=== PATIENT | female | born 1950 | race Two or more races ===

== ENCOUNTER 2024-07-24 15:49 | Inpatient (IN) | payer OTHER ==
[~2024-07-24] VITALS: Ht 152.4 cm; Wt 77.5 kg
[2024-07-24 16:20] VITALS: PULSE 92; RESP 16; O2SAT 90
--- NOTE | 2024-07-24 16:29 | ED.PDOC ---
Musculoskeletal HPI Comments 74 year old female presents to the ED with chief complaint of bilateral lower extremities. Patient reports that she has been experiencing bilateral leg swelling for the past 3-4 months with associated painful right lower extremity wounds that have been present for a month. Patient relays that she also has been having SOB, however, she is currently on 2L of O2 via NC at home. Patient denies any chest pain, cough, numbness, weakness, fever, or chills. Chief Complaint: Lower Extremity Time Seen by MD: 16:26 Reviewed Notes: Nurses Notes, Medications, Allergies Allergies: Coded Allergies: Iodine (Verified Allergy, Unknown, 07/24/24) Uncoded Allergies: PENICILLIN (Allergy, Unknown, 07/24/24) Information Source: Patient Mode of Arrival: Wheelchair Location: Bilateral Extremity Location: Leg Timing: Months Prehospital treatment: None Severity: Moderate Able to Move Extremity: No Bear Weight: Limited Pain: Moderate Mechanism: Spontaneous Circumstances: Spontaneous, Preceding Wound Onset of Symptoms: Spontaneous Symptoms: Swelling, Pain Past Medical History PAST MEDICAL HISTORY: CHF, HTN Surgical History: Unknown 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 Hx Family History Family History: Reviewed,noncontributory to illness Social History Smoker: Non-Smoker Alcohol: Denies ETOH Use Drugs: Denies Drug Use Lives In: Home Constitutional: denies: chills, diaphoresis, fatigue, fever, malaise, sweats, weakness, others EENTM: denies: blurred vision, double vision, ear bleeding, ear discharge, ear drainage, ear pain, ear ringing, eye pain, eye redness, hearing loss, mouth pain, mouth swelling, nasal discharge, nose bleeding, nose congestion, nose pain, photophobia, tearing, throat pain, throat swelling, voice changes, others Respiratory: reports: shortness of breath; denies: cough, hemoptysis, orthopnea, SOB at rest, SOB with excertion, stridor, wheezing, others Cardiovascular: reports: edema; denies: chest pain, dizzy spells, diaphoresis, Dyspnea on exertion, irregular heart beat, left arm pain, lightheadedness, palpitations, PND, syncope, others Gastrointestinal: denies: abdomen distended, abdominal pain, blood streaked bowels, constipated, diarrhea, dysphagia, difficulty swallowing, hematemesis, melena, nausea, poor appetite, poor fluid intake, rectal bleeding, rectal pain, vomiting, others Genitourinary: denies: abnormal vagina bleeding, burning, dyspareunia, dysuria, flank pain, frequency, hematuria, incontinence, pain, , vagina discharge, urgency, others Neurological: denies: dizziness, fainting, headache, left sided numbness, left sided weakness, numbness, paresthesia, pre-existing deficit, right sided numbness, right sided weakness, seizure, speech problems, tingling, tremors, weakness, others Musculoskeletal: denies: back pain, gout, joint pain, joint swelling, muscle pain, muscle stiffness, neck pain, others Integumetry: reports: wounds; denies: bruises, change in color, change in hair/nails, dryness, laceration, lesions, lumps, rash, others Allergic/Immunocompromised: denies: Difficulty Healing, Frequent Infections, Hives, Itching, others Hematologic/Lymphatic: denies: anemia, blood clots, easy bleeding, easy bruising, swollen glands, others Endocrine: denies: excessive hunger, excessive sweating, excessive thirst, excessive urination, flushing, intolerance to cold, intolerance to heat, unex plained weight gain, unexplained weight loss, others Psychiatric: denies: anxiety, bipolar disorder, depression, hopeless, panic disorder, schizophrenia, sleepless, suicidal, others All Other Systems: Reviewed and Negative Physical Exam General Appearance: No Apparent Distress, Normal HEENT: Normal ENT Inspection, PERRL/EOMI Neck: Full Range of Motion, Non-Tender, Normal, Normal Inspection Respiratory: Chest Non-Tender, Lungs Clear, No Accessory Muscle Use, No Respiratory Distress, Normal Breath Sounds Cardiovascular: No Edema, No JVD, No Murmur, No Gallop, Normal Peripheral Pulses, Regular Rate/Rhythm Breast Exam: Deferred Gastrointestinal: No Organomegaly, Non Tender, No Pulsatile Mass, Normal Bowel Sounds, Soft Genitalia: Deferred Pelvic: Deferred Rectal: Deferred Extremities: Leg edema (Bilateral lower extremity pitting edema), No calf te nderness, Normal capillary refill, Normal inspection, Non-tender Musculoskeletal : Apperance: Normal Neurologic: Alert, snack stewardess II-XII nml as Tested, No Motor Deficits, Normal Affect, Normal Mood, No Sensory Deficits Cerebellar Function: Normal Reflexes: Normal Skin: Dry, Normal Color, Warm, Wounds (2 small, 5mm round wounds with no discharge to the anterior right lower leg) Lymphatic: No Adenopathy Was a procedure done? Was a procedure done?: No Differential Diagnosis EXT Differential Diagnosis: Cellulitis, CHF, Deep Vein Thrombosis, Compartment Syndrome, Neurovascular injury X-Ray, Labs, Meds, VS Vital Signs Date Time Temp Pulse Resp B/P (MAP) Pulse Ox O2 Delivery O2 Flow Rate FiO2 07/24/24 16:20 98.3 92 16 163/97 (119) 90 98.3 07/24/24 16:20 92 16 90 Nasal Cannula* 2 28 07/24/24 16:20 98.3 92 16 163/97 (119) 96 07/24/24 16:18 89 07/24/24 15:57 92 Lab Test 07/24/24 19:16 07/24/24 16:25 Range/Units Urine Color Pending Urine Clarity Pending Urine pH Pending Urine Specific [place] Pending Urine Protein Pending Urine Ketones Pending Urine Blood Pending Urine Nitrite Pending Urine Bilirubin Pending Urine Urobilinogen Pending Urine Leukocyte Esterase Pending Urine RBC Pending Urine Microscopic WBC Pending Urine Squamous Epithelial Cells Pending Urine Bacteria Pending Urine Glucose Pending White Blood Count 7.9 4.4-10.8 10^3/uL Red Blood Count 5.44 H 4.0-5.20 10^6/uL Hemoglobin 15.0 12.2-16.2 g/dL Hematocrit 48.1 H 36.0-46.0 % Mean Corpuscular Volume 88.4 80.0-100.0 fL Mean Corpuscular Hemoglobin 27.5 L 28.0-32.0 pg Mean Corpuscular Hemoglobin Concent 31.1 L 32.0-36.0 g/dL Red Cell Distribution Width 16.3 H 11.8-14.3 % Platelet Count 288 140-450 10^3/uL Mean Platelet Volume 8.5 6.9-10.8 fL Neutrophils (%) (Auto) 71.5 37.0-80.0 % Lymphocytes (%) (Auto) 10.0 10.0-50.0 % Monocytes (%) (Auto) 11.7 0.0-12.0 % Eosinophils (%) (Auto) 5.8 0.0-7.0 % Basophils (%) (Auto) 1.0 0.0-2.0 % Neutrophils # (Auto) 5.6 1.6-8.6 10 ^3/uL Lymphocytes # (Auto) 0.8 0.4-5.4 10 ^3/uL Monocytes # (Auto) 0.9 0-1.3 10 ^3/uL Eosinophils # (Auto) 0.5 0-0.8 10 ^3/uL Basophils # (Auto) 0.1 0-0.2 10 ^3/uL Nucleated Red Blood Cells 0.1 % Sodium Level 143 136-145 mmol/L Potassium Level 3.7 3.5-5.1 mmol/L Chloride Level 105 98-107 mmol/L Carbon Dioxide Level 32 H 20-31 mmol/L Anion Gap 6 5-15 Blood Urea Nitrogen 17 9-23 mg/dL Creatinine 1.38 H 0.550-1.02 mg/dL Glomerular Filtration Rate Calc 41 >90 mL/min BUN/Creatinine Ratio 12.3 10.0-20.0 Serum Glucose 97 74-106 mg/dL Calcium Level 9.6 8.7-10.4 mg/dL Total Bilirubin 0.5 0.2-1.0 mg/dL Aspartate Amino Transferase (AST) 21 13-40 U/L Alanine Aminotransferase (ALT) 13 7-40 U/L Alkaline Phosphatase 152 H 46-116 U/L B-Type Natriuretic Peptide 1167.82 0-100 pg/mL Total Protein 6.4 5.7-8.2 g/dL Albumin 4.1 3.2-4.8 g/dL X-Ray, Labs, Meds, VS Comment Elevated BNP 1167 Patient will be admitted for CHF exacerbation and cellulitis Time of 1ST Reevaluation: 17:26 Reevaluation 1ST: Unchanged Patient Education/Counseling: Diagnosis, Treatment Family Education/Counseling: No Family Present Departure 1 Departure Time of Disposition: 19:43 Impression: Primary Impression: CHF exacerbation Qualified Codes: I50.23 - Acute on chronic systolic (congestive) heart failure Additional Impressions: Peripheral edema Pulmonary congestion Cellulitis and abscess of leg Disposition: ADMITTED INPATIENT Condition: Fair Discharged With: Self Critical Care Note Critical Care Time?: No Stability Stability form required: No Heart Score Heart Score: Heart Score Response (Comments) Value History N/A 0 EKG N/A 0 Age N/A 0 Risk Factors N/A 0 Troponin N/A 0 Total 0 I personally scribed for LUDWIG CASTILLO ([email or web address]) on 07/24/24 at 16:29. Electronically submitted by Kelvin Rowe ([email or web address]). LUDWIG CASTILLO Jul 24, 2024 16:29
[2024-07-24 16:38] LABS: Basophils # (auto) 0.1 10 ^3/uL (0-0.2); Eosinophils # (auto) 0.5 10 ^3/uL (0-0.8); Eosinophils % (auto) 5.8 % (0.0-7.0); Hematocrit 48.1 % (36.0-46.0); Lymphocytes # (auto) 0.8 10 ^3/uL (0.4-5.4); Mean Corpuscular Hemoglobin 27.5 pg (28.0-32.0); Mean Corpuscular Hgb Conc. 31.1 g/dL (32.0-36.0); Mean Corpuscular Volume 88.4 fL (80.0-100.0); Monocytes # (auto) 0.9 10 ^3/uL (0-1.3); Monocytes % (auto) 11.7 % (0.0-12.0); Neutrophils # (auto) 5.6 10 ^3/uL (1.6-8.6); Neutrophils % (auto) 71.5 % (37.0-80.0); Nucleated Red Blood Cells % 0.1 %; Platelet Count (auto) 288 10^3/uL (140-450); Red Blood Cells 5.44 10^6/uL (4.0-5.20); Red Cell Distribution Width 16.3 % (11.8-14.3); White Blood Cell 7.9 10^3/uL (4.4-10.8)
[2024-07-24 16:58] LABS: Alanine Aminotransferase 13 U/L (7-40); Albumin 4.1 g/dL (3.2-4.8); Anion Gap 6 (5-15); Aspartate Aminotransferase 21 U/L (13-40); BUN/Creatinine Ratio 12.3 (10.0-20.0); Bilirubin, Total 0.5 mg/dL (0.2-1.0); Blood Urea Nitrogen 17 mg/dL (9-23); Calcium 9.6 mg/dL (8.7-10.4); Chloride 105 mmol/L (98-107); Glucose 97 mg/dL (74-106); Potassium 3.7 mmol/L (3.5-5.1); Sodium 143 mmol/L (136-145); Total Protein 6.4 g/dL (5.7-8.2)
[2024-07-24 16:59] LABS: Alkaline Phosphatase 152 U/L (46-116); Carbon Dioxide 32 mmol/L (20-31)
--- NOTE | 2024-07-24 17:08 | DVH ---
CHEST RADIOGRAPH Indication: sob Technique: Single frontal view of the chest was obtained COMPARISON: None FINDINGS: Lines and Tubes: None Lungs: Mild congestion Pleura: No effusion. No pneumothorax. Cardiomediastinal contours: Large hiatal hernia Bones: Unremarkable IMPRESSION: Mild congestion Large hiatal hernia
[2024-07-24 19:42] LABS: Urine Bacteria None Seen /hpf (None Seen)
[2024-07-24 19:49] LABS: Urine Blood Negative /uL (Negative); Urine Clarity Clear (Clear); Urine Color Light-Yellow (Yellow); Urine Protein, UAD Negative (Negative); Urine Specific Gravity 1.011 (1.001-1.035); Urine Squamous Epithelial Cell FEW /hpf (<5); Urine Urobilinogen Normal (Negative); Urine WBC 6 /HPF (0-5); Urine pH 5.5 (5.0-9.0)
[2024-07-24] MEDS: SODIUM CHLOR 0.9% PF (SALINE LOCK) 10ML VIAL/SYR IV SCH (22:00)
[2024-07-24] MEDS ORDERED: NITROGLYCERIN 0.4 MG SL TAB SL PRN (22:00)
[2024-07-24] MEDS ORDERED: ACETAMINOPHEN 325 MG TAB PO PRN (22:00)
[2024-07-24] MEDS ORDERED: MORPHINE SULFATE INJ 2 MG/ml SYRG IV PRN (22:00)
[2024-07-24 23:27] LABS: Magnesium 1.9 mg/dL (1.6-2.6)
--- NOTE | 2024-07-24 23:39 | DVHHPRES ---
History of Present Illness Resident Creating Document: ALYSE NEWMAN RESIDENT History of Present Illness REJI PRICE is a 74-year-old female with a PMH of CHF, HTN presented to the ED with the chief complaints of worsening of bilateral lower extremity swelling and shortness of breaths. Patient reported she has been having shortness of breath all the time and she is on 2 L NC home oxygen. Patient reported for past 1 month since started having more swelling in the both legs associated with itchiness, redness and wounds on right extremity, she exactly did not remember the trigger for wounds, initially oozing but not anymore. Patient reported no signs of infection like fever. On my assessment patient denies fever, nausea, vomiting, diarrhea, diaphoresis, chest pain and other acute associated symptoms. PMH: CHF for 1 year, HTN for 20 years (clonidine and metoprolol) PSH: Not significant Family Hx: CABG in mother Social Hx: Lives with son. Former smoker 20 years ago <1 pack/day 10 years, denies alcohol and other drug abuse. Alergies: Iodine, penicillins (hives) Home medications: Review of Systems Review of Systems Patient seen and examined at the bedside. Reported shortness of breath and pain in the right lower extremity, ordered venous scan, pending. ordered echocardiogram, pending. Currently receiving Lasix 40, Coreg, clindamycin. Constitutional: No: Fever, Chills, Sweats, Weakness, Malaise, Other Eyes: No: Pain, Vision change, Conjunctivae inflammation, Eyelid inflammation, Other, Redness ENT: No: Ear pain, Ear discharge, Nose pain, Nose discharge, Nose congestion, Mouth pain, Mouth swelling, Throat pain, Throat swelling, Other Respiratory: Shortness of breath, SOB with excertion Cardiovascular: Edema Skin: Other (Rash, wounds on right lower extremity) Neurological: No: Weakness, Numbness, Incoordination, Change in speech, Confusion, Seizures, Other Allergies: Coded Allergies: Iodine (Verified Allergy, Unknown, 07/24/24) Uncoded Allergies: PENICILLIN (Allergy, Unknown, 07/24/24) Medications Current Medications Medications Dose Ordered Sig/Ewa Route Start Time Stop Time Status Last Admin Dose Admin Sodium Chloride 10 ml Q8HR IV 07/24/24 22:00 Enoxaparin Sodium 40 mg DAILY SC 07/25/24 10:00 Acetaminophen 650 mg Q6HP PRN PO 07/24/24 22:00 Nitroglycerin 0.4 mg Q5MINP PRN SL 07/24/24 22:00 Morphine Sulfate 2 mg Q30M PRN IV 07/24/24 22:00 Furosemide 40 mg BIDD IV 07/25/24 06:00 Carvedilol 6.25 mg Q12HR PO 07/25/24 10:00 Clindamycin Phosphate 50 ml @ 50 mls/hr Q8HR IV 07/25/24 06:00 Pantoprazole Sodium 40 mg DAILY IV 07/25/24 10:00 Exam Vital Signs Vital Signs Date Time Temp Pulse Resp B/P (MAP) Pulse Ox O2 Delivery O2 Flow Rate FiO2 07/24/24 16:20 98.3 92 16 163/97 (119) 90 98.3 07/24/24 16:20 Nasal Cannula* 2 28 Exam Pt is lying on bed General Appearance: Alert, Oriented X3, Cooperative, mild distress HEENT: Atraumatic, Mucous membranes moist/pink Respiratory: Clear to auscultation, Normal air movement, Cardiovascular: Regular rate, Normal S1, Normal S2, Abdominal: Active bowel sounds, Soft, no distention, no tenderness Extremities: 2+ BLE edema with redness, warmth, wounds on right leg Neuro: Normal speech, sensorimotor deficits none Psych/Mental Status: Mental status NL, Mood NL Nurse was there as sharperone during examination Labs/Xrays Labs Test 07/24/24 22:42 07/24/24 19:16 07/24/24 16:25 Range/Units Urine Color Light-yellow Yellow Urine Clarity Clear Clear Urine pH 5.5 5.0-9.0 Urine Specific [place] 1.011 1.001-1.035 Urine Protein Negative Negative Urine Ketones Negative Negative Urine Blood Negative Negative /uL Urine Nitrite Negative Negative Urine Bilirubin Negative Negative Urine Urobilinogen Normal Negative mg/dL Urine Leukocyte Esterase Trace Negative /uL Urine RBC <1 0 - 4 /hpf Urine Microscopic WBC 6 H 0-5 /HPF Urine Squamous Epithelial Cells Few <5 /hpf Urine Bacteria None seen None Seen /hpf Urine Glucose Normal Normal mg/dL White Blood Count 7.9 4.4-10.8 10^3/uL Red Blood Count 5.44 H 4.0-5.20 10^6/uL Hemoglobin 15.0 12.2-16.2 g/dL Hematocrit 48.1 H 36.0-46.0 % Mean Corpuscular Volume 88.4 80.0-100.0 fL Mean Corpuscular Hemoglobin 27.5 L 28.0-32.0 pg Mean Corpuscular Hemoglobin Concent 31.1 L 32.0-36.0 g/dL Red Cell Distribution Width 16.3 H 11.8-14.3 % Platelet Count 288 140-450 10^3/uL Mean Platelet Volume 8.5 6.9-10.8 fL Neutrophils (%) (Auto) 71.5 37.0-80.0 % Lymphocytes (%) (Auto) 10.0 10.0-50.0 % Monocytes (%) (Auto) 11.7 0.0-12.0 % Eosinophils (%) (Auto) 5.8 0.0-7.0 % Basophils (%) (Auto) 1.0 0.0-2.0 % Neutrophils # (Auto) 5.6 1.6-8.6 10 ^3/uL Lymphocytes # (Auto) 0.8 0.4-5.4 10 ^3/uL Monocytes # (Auto) 0.9 0-1.3 10 ^3/uL Eosinophils # (Auto) 0.5 0-0.8 10 ^3/uL Basophils # (Auto) 0.1 0-0.2 10 ^3/uL Nucleated Red Blood Cells 0.1 % Sodium Level 143 136-145 mmol/L Potassium Level 3.7 3.5-5.1 mmol/L Chloride Level 105 98-107 mmol/L Carbon Dioxide Level 32 H 20-31 mmol/L Anion Gap 6 5-15 Blood Urea Nitrogen 17 9-23 mg/dL Creatinine 1.38 H 0.550-1.02 mg/dL Glomerular Filtration Rate Calc 41 >90 mL/min BUN/Creatinine Ratio 12.3 10.0-20.0 Serum Glucose 97 74-106 mg/dL Hemoglobin A1c 5.9 H <5.7 % A1C Calcium Level 9.6 8.7-10.4 mg/dL Magnesium Level 1.9 1.6-2.6 mg/dL Total Bilirubin 0.5 0.2-1.0 mg/dL Aspartate Amino Transferase (AST) 21 13-40 U/L Alanine Aminotransferase (ALT) 13 7-40 U/L Alkaline Phosphatase 152 H 46-116 U/L B-Type Natriuretic Peptide 1167.82 0-100 pg/mL Total Protein 6.4 5.7-8.2 g/dL Albumin 4.1 3.2-4.8 g/dL Thyroid Stimulating Hormone (TSH) 2.95 0.55-4.78 uIU/mL Assessment/Plan Assessment/Plan # Acute on chronic systolic VS diastolic CHF -admitted to telemetry -BNP elevated -currently giving Lasix 40 mg, Coreg 6.12 -CXR showed congestion -Ordered echocardiogram, TSH, lipid panel # Uncontrolled HTN -monitor blood pressure -currently on losartan # DOUG likely VMN unknown baseline -monitor for now # Right lower extremity cellulitis vs abscess -currently on clindamycin and doxy -ordered wound consult and cultures -ordered CAT scan WO contrast # Chronic Large hiatal hernia -evident on CXR -currently on Protonix PUD PPX: Protonix VTE PPX: Lovenox Diet: Cardiac diet Goals of care discussed with the patient and daughter for more than 27 minutes: Full code status Case discussed with Dr. Chavira, patient and nurse Plan discussed with: Patient, Daughter, Son, Other (RN) My Orders Orders - ALYSE NEWMAN RESIDENT Procedure Category Date Status Time Admit ADMIT 07/24/24 Transmitted 21:48 Allergies SABI 07/24/24 In Process 21:48 Code Status CODE 07/24/24 Transmitted 21:48 Sodium Chloride Lock PHA 07/24/24 In Process (Saline Lock Ns) 22:00 Oxygen Per Hour RT 07/24/24 Transmitted 21:48 Enoxaparin Sodium PHA 07/25/24 In Process (Lovenox) 10:00 Complete Blood Count LAB 07/25/24 Verified 04:00 Comprehensive LAB 07/25/24 Verified Metabolic Panel 04:00 Cardiac DIET 07/25/24 Transmitted Diet-2gna,Lofat,Lochol Breakfast Echo 2d Mode Cardiac US 07/24/24 Logged DOP 21:48 Condition: Stable SABI 07/24/24 In Process 21:48 Acetaminophen Tablet PHA 07/24/24 In Process (Tylenol Tablet) 22:00 Sequential SABI 07/24/24 In Process Compression Device Nitroglycerin PHA 07/24/24 In Process Sublingual (Ntrostat 22:00 Morphine Sulfate PHA 07/24/24 In Process Injection 22:00 Oxygen By Nasal RT 07/24/24 Transmitted Cannula 21:48 Stat Ekg For Chest [facility] 07/24/24 In Process Pain 21:48 Notify Md Of Changes [facility] 07/24/24 In Process From Base 21:48 Performance Improvement Specialist For [facility] 07/24/24 In Process 24 Hours 21:48 Emergency Dysrhythmia [facility] 07/24/24 In Process Protocol 21:48 Rhythm Strips Once [facility] 07/24/24 In Process Every Shift 21:48 Rapid Influenza A&B LAB 07/24/24 Logged 22:25 Covid19 Antigen [facility] LAB 07/24/24 Logged PTPTT LAB 07/25/24 Verified 04:00 Magnesium LAB 07/24/24 In Process 22:25 Lipid Panel LAB 07/24/24 In Process 22:25 Drug Screen LAB 07/24/24 Logged 22:25 Blood Alcohol LAB 07/24/24 In Process 22:25 Furosemide Injection PHA 07/25/24 In Process (Lasix Injection) 06:00 Carvedilol Tablet PHA 07/25/24 In Process (Coreg Tablet) 10:00 Clindamycin 600mg Iv PHA 07/25/24 Logged (Cleocin Iv) 06:00 Pantoprazole PHA 07/25/24 In Process (Protonix) 10:00 * Wound Consult CONS 07/24/24 Transmitted Wound Culture W/ Gs JOSE 07/24/24 Uncollected 23:26 Bilat Lower Dvt US 07/24/24 Logged 23:29 Date of Service: Jul 24, 2024 Billing Provider: APOORVA CHAVIRA MD Common Visit Codes: 11734-RJMRLAG INP/OBS CARE (HIGH) ALYSE NEWMAN RESIDENT Jul 24, 2024 23:39 APOORVA CHAVIRA MD Jul 25, 2024 23:51
[2024-07-25] MEDS: FUROSEMIDE 40 MG/4 ML VIAL IV ONE (00:16)
--- NOTE | 2024-07-25 00:16 | DVH ---
Bilateral lower extremity venous duplex Clinical History: pain amnd swelling Comparison: None Technique: Duplex Doppler evaluation of the deep venous systems of both lower extremities from the common femora l veins to the popliteal veins including color Doppler and spectral/pulsed waveform analysis was perf ormed. Findings: RIGHT SIDE: The common femoral vein demonstrates appropriate compressibility and waveform variability . There is compressibility/patency of the great saphenous vein at the proximal thigh . The femoral vein demonstrates appropriate compressibility and waveform variability . The deep femoral vein demonstrates appropriate compressibility and waveform variability . The popliteal vein demonstrates appropriate compressibility and waveform variability . LEFT SIDE: The common femoral vein demonstrates appropriate compressibility and waveform variability . There is compressibility/patency of the great saphenous vein at the proximal thigh . The femoral vein demonstrates appropriate compressibility and waveform variability . The deep femoral vein demonstrates appropriate compressibility and waveform variability . The popliteal vein demonstrates appropriate compressibility and waveform variability . Impression: No evidence of right or left femoropopliteal venous thrombosis.
[2024-07-25] MEDS: CARVEDILOL 3.125 MG TAB PO ONE (00:20)
[2024-07-25] MEDS: FUROSEMIDE 20 MG/2 ML VIAL IV ONE (00:21)
[2024-07-25] MEDS: cefTRIAXone 1GM/50ML D5W 50 ML IV ONE (00:22)
[2024-07-25 01:48] LABS: COVID19 ANTIGEN SOFIA FIA NEGATIVE (NEGATIVE); Rapid Influenza A Negative (Negative); Rapid Influenza B Negative (Negative)
--- NOTE | 2024-07-25 03:21 | DVH ---
INDICATION: abscess COMPARISON: None TECHNIQUE: CT of the right tibia and fibula was performed without contrast. Volume transverse images were obtained and reconstructed in multiple planes using bone and soft tissue algorithms. CONTRAST: None. Radiation Dose: DLP 421.12 mGy.cm; CTDI 7.75 mGy. FINDINGS: There is no evidence for acute fracture or dislocation. The bones are somewhat osteopenic. Degenerat susana changes noted about the knee and ankle with joint space narrowing and osteophytosis. There is dif fuse subcutaneous edema noted about the foreleg and ankle as well as skin thickening. No obvious flui d collection is identified although evaluation is somewhat limited on this noncontrast study. IMPRESSION: Subcutaneous edema and skin thickening in the distal foreleg and ankle. No obvious fluid collection. Osteopenia and degenerative change. 1. All CT scans at this medical facility are performed using dose modulation techniques as appropriat e to a performed exam including the following: Automated exposure control was utilized; adjustment of the MA and/or KV according to patient size; and use of iterative reconstruction technique.
[2024-07-25] MEDS: CLINDAMYCIN 600MG IV 50 ML IV ONE (03:31)
[2024-07-25] MEDS: CLINDAMYCIN 600MG IV 50 ML IV SCH (03:42)
[2024-07-25] MEDS: DOXYCYCLINE 100MG/100ML 100 ML IV SCH (03:42)
[2024-07-25 05:35] LABS: Basophils # (auto) 0.1 10 ^3/uL (0-0.2); Basophils % (auto) 1.3 % (0.0-2.0); Eosinophils # (auto) 0.4 10 ^3/uL (0-0.8); Eosinophils % (auto) 5.1 % (0.0-7.0); Hematocrit 44.4 % (36.0-46.0); Hemoglobin 14.1 g/dL (12.2-16.2); Lymphocytes # (auto) 1.1 10 ^3/uL (0.4-5.4); Lymphocytes % (auto) 13.1 % (10.0-50.0); Mean Corpuscular Hemoglobin 28.1 pg (28.0-32.0); Mean Corpuscular Hgb Conc. 31.7 g/dL (32.0-36.0); Mean Corpuscular Volume 88.8 fL (80.0-100.0); Neutrophils # (auto) 5.9 10 ^3/uL (1.6-8.6); Neutrophils % (auto) 68.5 % (37.0-80.0); Nucleated Red Blood Cells % 0.1 %; Platelet Count (auto) 284 10^3/uL (140-450); Red Cell Distribution Width 16.1 % (11.8-14.3); White Blood Cell 8.6 10^3/uL (4.4-10.8)
[2024-07-25 05:48] LABS: Alanine Aminotransferase 13 U/L (7-40); Albumin 4.1 g/dL (3.2-4.8); Anion Gap 7 (5-15); Aspartate Aminotransferase 19 U/L (13-40); BUN/Creatinine Ratio 11.5 (10.0-20.0); Bilirubin, Total 0.5 mg/dL (0.2-1.0); Blood Urea Nitrogen 18 mg/dL (9-23); Calcium 9.4 mg/dL (8.7-10.4); Carbon Dioxide 31 mmol/L (20-31); Chloride 104 mmol/L (98-107); Glucose 101 mg/dL (74-106); INR 0.98 (0.9-1.15); Potassium 3.9 mmol/L (3.5-5.1); Prothrombin Time 10.4 sec (9.3-11.8); Sodium 142 mmol/L (136-145); Total Protein 6.4 g/dL (5.7-8.2)
[2024-07-25 05:57] LABS: Alkaline Phosphatase 142 U/L (46-116)
[2024-07-25] MEDS: FUROSEMIDE 40 MG/4 ML VIAL IV SCH (06:57)
[2024-07-25 07:00] VITALS: TEMP 98.7
[2024-07-25 08:15] VITALS: RESP 17; O2SAT 94
--- NOTE | 2024-07-25 09:52 | ECG ---
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
[2024-07-25] MEDS: ENOXAPARIN SOD 40 MG/0.4 ML SYRINGE SC SCH (10:46)
[2024-07-25] MEDS: PANTOPRAZOLE 40 MG/10 ML VIAL INJ IV SCH (10:46)
[2024-07-25] MEDS: CARVEDILOL 3.125 MG TAB PO SCH (10:47)
--- NOTE | 2024-07-25 11:15 | DVHPNRES ---
Progress Note Date Seen: Jul 25, 2024 Resident Creating Document: CHECO LÓPEZ RESIDENT Medical Necessity Reason Pt with a Central, PICC or Fol: No Subjective Review of Systems Patient is a 74-year-old female with past medical history of CHF, hypertension, thyroid disease, hiatal hernia, breast cancer, who came in due to bilateral lower extremity edema. According to the patient, for the past 2 months she has been experiencing swelling in bilateral lower extremities that has been progressively worsening. Leg elevation and massaging the legs improves the swelling, prolonged inactivity worsens the swelling. At baseline patient is ambulatory and occasionally uses a scooter and wheelchair however per patient she can not walk very far. Patient is also on home oxygen 2 L relatively a poor historian, however, A/O x3. On review of systems patient is complaining of cough. EKG showed sinus rhythm, right atrial enlargement, right ventricular hypertrophy with secondary repolarization abnormality and a prolonged QT interval. BNP 1167.82 Past surgical history: Appendectomy Home medications: Patient unable to provide names, son will bring list of home medications later Social & Personal history: Patient lives with her son. Quit smoking 15 years ago, prior to that was smoking 4 cigarettes per day for unknown amount of time. Denies using alcohol or drugs. Allergies: Penicillin (hives), iodine Patient seen and examined at bedside. Patient is alert and oriented to time, place person and responding to all questions. Eyes: No Pain, No Vision change, No Conjunctivae inflammation, No Eyelid inflammation, No Other, No Redness ENT: No Ear pain, No Ear discharge, No Nose pain, No Nose discharge, No Nose congestion, No Mouth pain, No Mouth swelling, No Throat pain, No Throat swelling, No Other Cardiovascular: No Chest Pain, No Palpitations, No Orthopnea, No Paroxysmal No Dyspnea, No Edema, No Lt Headedness, No Other Respiratory: Cough, No Dry, No Shortness of breath, No SOB with exertion, No Wheezing, No Hemoptysis, No Pleuritic Pain, No Sputum, No Other Gastrointestinal: No Nausea, No Vomiting, No Abdominal Pain, No Diarrhea, No Constipation, No Melena, No Hematochezia, No Other Genitourinary: No Dysuria, No Frequency, No Incontinence, No Hematuria, No Retention, No Other Musculoskeletal: No other, No neck pain, No shoulder pain, No arm pain, No back pain, No hand pain, No leg pain, No foot pain Skin: No Rash, No Lesions, No Jaundice, No Bruising, No Other Objective vital signs Vital Sign Date Time Temp Pulse Resp B/P (MAP) Pulse Ox O2 Delivery O2 Flow Rate FiO2 07/25/24 10:47 77 154/80 07/25/24 08:15 17 94 Nasal Cannula* 3 32 07/24/24 16:20 98.3 98.3 Total Intake and Output 07/24/24 07/24/24 07/25/24 15:00 23:00 07:00 Intake Total 200 ml Balance 200 ml medications Current Medications Medications Dose Ordered Sig/Ewa Route Start Time Stop Time Status Last Admin Dose Admin Sodium Chloride 10 ml Q8HR IV 07/24/24 22:00 07/25/24 06:55 10 ML Enoxaparin Sodium 40 mg DAILY SC 07/25/24 10:00 07/25/24 10:46 40 MG Furosemide 40 mg BIDD IV 07/25/24 06:00 07/25/24 06:57 40 MG Carvedilol 6.25 mg Q12HR PO 07/25/24 10:00 07/25/24 10:47 6.25 MG Clindamycin Phosphate 50 ml @ 50 mls/hr Q8HR IV 07/25/24 06:00 Pantoprazole Sodium 40 mg DAILY IV 07/25/24 10:00 07/25/24 10:46 40 MG Doxycycline Hyclate 100 ml @ 50 mls/hr Q12H IV 07/25/24 00:30 07/25/24 03:42 50 MLS/HR Examination General Appearance: Cooperative. Well developed. Well nourished. NAD. Dry mucous membranes Head Exam: Normal inspection Neck Exam: Normal inspection. Non-tender. Normal alignment Pulmonary/Respiratory: Chest non-tender. Clear bilateral breath sounds, no crackles, trace wheezing. Cardiovascular/Chest: Regular rate and rhythm. No murmurs. No JVD. Peripheral Pulses: 2+ Radial (R). 2+ Radial (L). 2+ Pedal (R). 2+ Pedal (L) Abdominal Exam: Normal bowel sounds. Soft. normal abdomen, no visible veins, Nontender. No hepatospenomegaly. No masses Lower extremities: +2 lower extremity edema. Right lower extremity anteriorly located to ulcers with overlying scab noted, erythematous edges which are slightly swollen and tender to palpation. Neuro/Mental Status: A&O x4. Coherent. Thoughts/Psych: Normal thought pattern. Appropriate mood and affect. Good judgement and insight Skin Exam: Normal inspection. Normal color. Warm. Dry laboratory and microbiology Laboratory Tests 07/25/24 05:10 Test 07/25/24 05:10 Range/Units Serum Glucose 101 74-106 mg/dL Labs and/or images reviewed: Labs reviewed by me, Image(s) reviewed by me Problem List/Assessment/Plan Problem List/Assessment/Plan Acute on chronic systolic versus diastolic congestive heart failure Chronic hypoxic respiratory failure, on home oxygen 2 L Right ventricular hypertrophy possible pulmonary hypertension Ruled out pulmonary embolism - CXR: Mild congestion. Large hiatal hernia - lower extremity venous Doppler: No evidence of right or left femoropopliteal venous thrombosis - lower extremity CT: Subcutaneous edema and skin thickening in the distal foreleg and ankle. No obvious fluid collection. Osteopenia and degenerative change. - carvedilol 6.25 mg b.i.d. - IV Lasix 40 mg b.i.d., goal negative balance of 7137-9919 mL - ordered echocardiogram COPD, stable - ipratropium and albuterol med nebs DOUG likely hemodynamically mediated/VMN on probable CKD? - monitor - currently holding home medication lisinopril Chronic venous stasis with the associated dermatitis Overlying cellulitis can not be ruled out - IV clindamycin - Lovenox prophylactic Hypertension Dyslipidemia Prediabetes - resumed home medication amlodipine 5 mg once, followed by amlodipine 10 mg p.o. daily - hydralazine 25 mg p.o. t.i.d. PUD prophylaxis: protonix 40mg DVT prophylaxis: Levonox 40mg Goals of care: Full code, discussed for >16 minutes on 07/25/2024 Plan discussed with patient Plan discussed with Dr. Hernández Plan discussed with: Patient, Other (RN) Date of Service: Jul 25, 2024 Billing Provider: SIMON HERNÁNDEZ MD Common Visit Codes: 78143-[id number] INP/OBS CARE(HIGH) CHECO LÓPEZ Jul 25, 2024 11:15 SIMON HERNÁNDEZ MD Jul 25, 2024 15:51
[2024-07-25 12:01] VITALS: BP 169/101; PULSE 70; RESP 18; O2SAT 92
[2024-07-25] MEDS: ALBUTEROL SULF 2.5 MG/0.5ML(0.5%) NEB SOLN NEB SCH (12:01)
[2024-07-25] MEDS: IPRATROPIUM BROM 0.5 MG/2.5ML INH SOL NEB SCH (12:01)
[2024-07-25 12:07] VITALS: PULSE 74; RESP 19; O2SAT 94
[2024-07-25 13:34] LABS: Blood Alcohol 3.1 mg/dL (<10)
--- NOTE | 2024-07-25 15:23 | DVHSR ---
APPROVED REPORT EXAM: Two-dimensional and M-mode echocardiogram with Doppler and color Doppler. Blood Pressure: 143/98 mmHg INDICATION ? CHF exacerbation RISK FACTORS Height: 60, Weight: 170 DIMENSIONS LVDd3.1 (3.8-5.7cm)LA (2D) (1.9-4.0cm)Aortic Root3.0 (2.0-3.7cm) LVDs1.9 (2.5-4.0cm)LA (MM) (1.9-4.0cm)Aortic Cusp Exc1.5 (1.5-2.0cm) EF (%) 70.0 (55-70%)Rt. Atrium5.4 (1.9-4.0cm)Asc. Aorta cm IVSd1.3 (0.7-1.1cm)RV (D) (1.8-2.4cm) PWd1.3 (0.7-1.1cm) Mitral Valve MitralMitral Stenosis E wave0.38m/sMV Mean GR.mmHg A wave1.03m/sMV Peak GR.mmHg E/A ratio0.42D MVAcm2 DECEL [id number] 1/2 Scsy36vy IVRTmsDop MVA4.05cm2 Aortic Valve Aortic ValveAortic Stenosis V10.81m/Jemima Mean GR.4mmHg V21.39m/Jemima Peak GR.8mmHg LVOT Diameter2.0 (1.8-2.4cm)Doppler AVA1.83cm2 Pulmonic Valve V20.69m/s Tricuspid Valve TR Velocity3.40m/s [id number] Other Information Technically limited study due to body habitus. Conclusion lvef 50% severe concentric LVH sever Right heart enlargemetn and failure severe pulm htn moderate tricuspdi regurg
[2024-07-25] MEDS: hydrALAZINE HCL 25 MG TAB PO SCH (16:48)
[2024-07-25] MEDS: amLODIPine BESYLATE 5 MG TAB PO ONE (16:48)
[2024-07-25 17:00] VITALS: BP 136/96; PULSE 69; RESP 21; O2SAT 92
[2024-07-25] MEDS ORDERED: ATORVASTATIN 20 MG TAB PO SCH (22:00)
--- NOTE | 2024-07-26 06:19 | DVHDSRES ---
Discharge Summary Date of Admission Resident Creating Document: CHECO LÓPEZ RESIDENT Jul 24, 2024 at 21:48 Date of Discharge: Jul 25, 2024 Admitting Diagnosis Bilateral lower extremity swelling Labs/Diagnostic Data: Laboratory Results Test 07/25/24 05:10 07/25/24 01:00 07/24/24 22:42 07/24/24 19:16 White Blood Count 8.6 10^3/uL (4.4-10.8) Red Blood Count 5.00 10^6/uL (4.0-5.20) Hemoglobin 14.1 g/dL (12.2-16.2) Hematocrit 44.4 % (36.0-46.0) Mean Corpuscular Volume 88.8 fL (80.0-100.0) Mean Corpuscular Hemoglobin 28.1 pg (28.0-32.0) Mean Corpuscular Hemoglobin Concent 31.7 g/dL (32.0-36.0) Red Cell Distribution Width 16.1 % (11.8-14.3) Platelet Count 284 10^3/uL (140-450) Mean Platelet Volume 8.9 fL (6.9-10.8) Neutrophils (%) (Auto) 68.5 % (37.0-80.0) Lymphocytes (%) (Auto) 13.1 % (10.0-50.0) Monocytes (%) (Auto) 12.0 % (0.0-12.0) Eosinophils (%) (Auto) 5.1 % (0.0-7.0) Basophils (%) (Auto) 1.3 % (0.0-2.0) Neutrophils # (Auto) 5.9 10 ^3/uL (1.6-8.6) Lymphocytes # (Auto) 1.1 10 ^3/uL (0.4-5.4) Monocytes # (Auto) 1.0 10 ^3/uL (0-1.3) Eosinophils # (Auto) 0.4 10 ^3/uL (0-0.8) Basophils # (Auto) 0.1 10 ^3/uL (0-0.2) Nucleated Red Blood Cells 0.1 % Prothrombin Time 10.4 sec (9.3-11.8) Prothrombin Time INR 0.98 (0.9-1.15) Activated Partial Thromboplast Time 23.0 SEC (24.5-34.5) Sodium Level 142 mmol/L (136-145) Potassium Level 3.9 mmol/L (3.5-5.1) Chloride Level 104 mmol/L (98-107) Carbon Dioxide Level 31 mmol/L (20-31) Anion Gap 7 (5-15) Blood Urea Nitrogen 18 mg/dL (9-23) Creatinine 1.56 mg/dL (0.550-1.02) Glomerular Filtration Rate Calc 35 mL/min (>90) BUN/Creatinine Ratio 11.5 (10.0-20.0) Serum Glucose 101 mg/dL (74-106) Calcium Level 9.4 mg/dL (8.7-10.4) Total Bilirubin 0.5 mg/dL (0.2-1.0) Aspartate Amino Transferase (AST) 19 U/L (13-40) Alanine Aminotransferase (ALT) 13 U/L (7-40) Alkaline Phosphatase 142 U/L (46-116) Total Protein 6.4 g/dL (5.7-8.2) Albumin 4.1 g/dL (3.2-4.8) Influenza Type A Antigen Negative (Negative) Influenza Type B Antigen Negative (Negative) SARS-CoV-2 Antigen (Rapid) Negative (NEGATIVE) Urine Color Light-yellow (Yellow) Urine Clarity Clear (Clear) Urine pH 5.5 (5.0-9.0) Urine Specific [place] 1.011 (1.001-1.035) Urine Protein Negative (Negative) Urine Ketones Negative (Negative) Urine Blood Negative /uL (Negative) Urine Nitrite Negative (Negative) Urine Bilirubin Negative (Negative) Urine Urobilinogen Normal mg/dL (Negative) Urine Leukocyte Esterase Trace /uL (Negative) Urine RBC <1 /hpf (0 - 4) Urine Microscopic WBC 6 /HPF (0-5) Urine Squamous Epithelial Cells Few /hpf (<5) Urine Bacteria None seen /hpf (None Seen) Urine Glucose Normal mg/dL (Normal) Test 07/24/24 16:25 Hemoglobin A1c 5.9 % A1C (<5.7) Magnesium Level 1.9 mg/dL (1.6-2.6) B-Type Natriuretic Peptide 1167.82 pg/mL (0-100) Triglycerides Level 173 mg/dL (< 150) Cholesterol Level 213 mg/dL (< 200) LDL Cholesterol 139 mg/dL (< 100) HDL Cholesterol 59 mg/dL (40-59) Thyroid Stimulating Hormone (TSH) 2.95 uIU/mL (0.55-4.78) Plasma/Serum Blood Alcohol 3.1 mg/dL (<10) Other Laboratory Tests 07/25/24 05:10 Brief Hx & Hospital Course: Patient is a 74-year-old female with past medical history of CHF, hypertension, thyroid disease, hiatal hernia, breast cancer, who came in due to bilateral lower extremity edema. According to the patient, for the past 2 months she has been experiencing swelling in bilateral lower extremities that has been progressively worsening. Leg elevation and massaging the legs improves the swelling, prolonged inactivity worsens the swelling. At baseline patient is ambulatory and occasionally uses a scooter and wheelchair however per patient she can not walk very far. Patient is also on home oxygen 2 L relatively a poor historian, however, A/O x3. On review of systems patient is complaining of cough. EKG showed sinus rhythm, right atrial enlargement, right ventricular hypertrophy with secondary repolarization abnormality and a prolonged QT interval. BNP 1167.82 Hospital course: Chest x-ray showed mild congestion in the large hiatal hernia. Lower extremity venous Doppler showed no evidence of femoropopliteal venous thrombosis. Lower extremity CT showed subcutaneous edema and skin thickening in the distal foreleg and ankle, no obvious fluid collection. Osteopenia and degenerative change. Patient was started on IV clindamycin and prophylactic Lovenox. Home medication carvedilol was also continued. Patient was also given IV Lasix 40 mg b.i.d. with a goal negative balance of 1500 mL, echocardiogram was ordered for the patient and ipratropium albuterol med nebs were continued. Blood pressure was managed with amlodipine and hydralazine. However, patient left against medical advice before further evaluation and management could be completed. Condition at Discharge: Undetermined Final Diagnosis/Problems List Acute on chronic congestive heart failure Right ventricular hypertrophy, possible pulmonary hypertension Chronic venous stasis Cellulitis of right lower extremity can not be ruled out Hypertension Large hiatal hernia Thyroid disease History of breast cancer Discharge Disposition: AMA Discharge Statement: "Patient was advised to return to the ER or call 911 if any headaches, dizziness, shortness of breath, chest pain, abdominal pain, bleeding, fevers, or worsening of medical condition. Patient was counseled about treatment plan, medications, possible side effects, patientverbalized understanding. All questions were answered to the best of my ability. This discharge took greater then 30 minutes in planning, reviewing documentation, counseling the patient, and discussing with other team members." ASSESSMENT ASSESSMENT Assessment Acute on chronic congestive heart failure Right ventricular hypertrophy, possible pulmonary hypertension Chronic venous stasis Cellulitis of right lower extremity can not be ruled out Hypertension Large hiatal hernia Thyroid disease History of breast cancer Date of Service: Jul 25, 2024 Billing Provider: SIMON HERNÁNDEZ MD Common Visit Codes: 67208-TII/OBS DISCH DAY >30min CHECO LÓPEZ Jul 26, 2024 06:19 SIMON HERNÁNDEZ MD Jul 26, 2024 21:19
[2024-07-26] MEDS ORDERED: amLODIPine BESYLATE 5 MG TAB PO SCH (10:00)
== END 2024-07-25 18:40 | disposition left against medical advice (07) | DRG 291 ==
LOC: ER 15:49 → OVERFLOW 21:48
PROVIDERS: ADMIT Student in an Organized Health Care Education/Training Program; ATTEND Internal Medicine
DX: I11.0 Hypertensive heart disease with heart failure (principal); I50.23 Acute on chronic systolic (congestive) heart failure; J96.11 Chronic respiratory failure with hypoxia; N17.9 Acute kidney failure, unspecified; L03.115 Cellulitis of right lower limb; F17.210 Nicotine dependence, cigarettes, uncomplicated; K44.9 Diaphragmatic hernia without obstruction or gangrene; Z20.822 Contact with and (suspected) exposure to COVID-19; E78.5 Hyperlipidemia, unspecified; R73.03 Prediabetes; I87.8 Other specified disorders of veins; Z53.29 Procedure and treatment not carried out because of patient's decision for other reasons; J44.9 Chronic obstructive pulmonary disease, unspecified; I27.20 Pulmonary hypertension, unspecified; Z88.0 Allergy status to penicillin; Z91.041 Radiographic dye allergy status; Z79.899 Other long term (current) drug therapy; Z95.1 Presence of aortocoronary bypass graft; Z85.3 Personal history of malignant neoplasm of breast; Z99.81 Dependence on supplemental oxygen
CPT/HCPCS: 36415; 71045; 73700; 80053; 80061; 80320; 81001; 83036; 83735; 83880; 84443; 85025; 85610; 85730; 87426; 87804; 93005; 93306; 93970; 94640; G0378; J2470; J3490